=== PATIENT | male | born 1980 | race Caucasian/White ===

== ENCOUNTER 2018-03-22 21:49 | Emergency (ER) | payer OTHER ==
[~2018-03-22] VITALS: Ht 188 cm; Wt 99.8 kg
--- NOTE | 2018-03-22 23:07 | Diagnostic Imaging Report ---
EXAM: SHOULDER LEFT 2 VIEWS AP and internal and external rotation INDICATION: Left shoulder pain, strained at work COMPARISON: None FINDINGS: BONES: No acute fractures. JOINTS: No malalignment. SOFT TISSUES: Normal IMPRESSION: Normal left shoulder radiograph. Signed by: Dr. Adriana King M.D. on 03/22/2018 11:03 PM
[2018-03-22 23:47] VITALS: BP 136/86
== END 2018-03-23 00:06 | disposition home or self-care (01) ==
LOC: ER 21:49
DX: M79.622 Pain in left upper arm (principal); M25.512 Pain in left shoulder; S46.212A Strain of muscle, fascia and tendon of other parts of biceps, left arm, initial encounter; E78.5 Hyperlipidemia, unspecified
CPT/HCPCS: 93005; 99283